=== PATIENT | female | born 1965 | race Caucasian/White ===

== ENCOUNTER 2016-11-28 15:30 | Emergency (ER) | payer OTHER ==
[~2016-11-28] VITALS: Wt 55.0 kg
[2016-11-28] MEDS ORDERED: IBUPROFEN 800 MG TAB PO ONE (16:30)
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
[2016-11-28] MEDS ORDERED: NAPR-260 PO (17:16)
[2016-11-28] MEDS ORDERED: TRAM50TA2 PO (17:16)
[2016-11-28 17:44] VITALS: PULSE 64; RESP 18; TEMP 98.7
== END 2016-11-28 17:45 | disposition home or self-care (01) ==
LOC: FTE 15:30
DX: S99.922A Unspecified injury of left foot, initial encounter (principal); E11.9 Type 2 diabetes mellitus without complications; V03.00XA Pedestrian on foot injured in collision with car, pick-up truck or van in nontraffic accident, initial encounter
CPT/HCPCS: 73630; Z7502; Z7610; 99283